=== PATIENT | female | born 2005 | race Caucasian/White ===

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

== ENCOUNTER 2023-03-03 21:50 | Emergency (ER) | payer MEDICAID ==
[~2023-03-03] VITALS: Ht 157.5 cm; Wt 59.4 kg
[2023-03-03 22:40] VITALS: BP 113/69; PULSE 100; RESP 22; TEMP 97.1; O2SAT 99
== END 2023-03-04 01:32 | disposition left against medical advice (07) ==
LOC: MED 21:50
DX: O26.891 Other specified pregnancy related conditions, first trimester (principal); M54.50 Low back pain, unspecified; Z53.21 Procedure and treatment not carried out due to patient leaving prior to being seen by health care provider
CPT/HCPCS: 81025; 99281

== ENCOUNTER 2023-07-30 22:35 | Observation (INO) | payer MEDICAID ==
[~2023-07-30] VITALS: Ht 160 cm; Wt 62.6 kg
[2023-07-30] MEDS ORDERED: CALCIUM (23:37)
[2023-07-30 23:50] VITALS: BP 106/72; PULSE 72; RESP 18; TEMP 98.3
== END 2023-07-30 23:59 | disposition home or self-care (01) ==
LOC: MLD 22:35
PROVIDERS: ADMIT Obstetrics & Gynecology; ATTEND Obstetrics & Gynecology
DX: O26.893 Other specified pregnancy related conditions, third trimester (principal); R10.9 Unspecified abdominal pain; M79.602 Pain in left arm; Z3A.40 40 weeks gestation of pregnancy
CPT/HCPCS: 81000; G0378; G0379